=== PATIENT | male | born 1980 | race Caucasian/White ===

== ENCOUNTER 2024-02-20 11:22 | Emergency (ER) | payer SELFPAY ==
[2024-02-20 11:30] VITALS: BP 167/107; PULSE 116; TEMP 36.9; O2SAT 96; BMI 28.2
--- NOTE | 2024-02-20 11:41 | XR_ITS ---
The [address] [address] Patient Name: ZELDA SILVERIO MRN: [id number] date: 1980 Sex: M Assigned Patient Location: ER Current Patient Location: ER Accession/Order Number: [id number] Exam Date: 02/20/2024 11:58 Report Date: 02/20/2024 12:18 At the request of: MOHSEN ARIZMENDI Procedure: XR chest 2V EXAM: XR chest 2V HISTORY: cough COMPARISON: Chest radiograph dated 02/07/2024. TECHNIQUE: PA and lateral views of the chest performed. FINDINGS: The trachea is midline. The heart size is normal. The cardiomediastinal silhouette and hilar shadows are normal. There is no consolidation, pleural effusion or pulmonary vascular congestion. There is no pneumothorax. The osseous structures are unremarkable. XR/XR chest 2V IMPRESSION: There is no acute cardiopulmonary process. Electronically authenticated by: AASHISH ALLISON Date: 02/20/2024 12:18
--- NOTE | 2024-02-20 11:42 | ED.GENADUL1 ---
HPI HPI - General Adult General Chief complaint: Shortness of Breath/Dyspnea Stated complaint: COUGHING SOB Time Seen by Provider: 02/20/24 11:31 Source: patient Mode of arrival: walk-in History of Present Illness HPI narrative: Patient presents to ED complaining of cough. He was diagnosed with acute bronchitis and he has had 2 rounds of steroids and 2 rounds of antibiotics in the past month. He states there is still a lingering cough. He said the shortness of breath has improved. No fever no productive cough yet he states the cough is hacking and worse at night and causes him to almost vomit. He was concerned because he has a friend who from pneumonia and he did not know if this was developing into pneumonia. 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 No respiratory distress. He is anxious. No abdominal pain no fevers. Patient does have a history of vaping and smoking. Related Data Previous Rx's ?Medication ?Instructions ?Recorded hydrocodone-homatropine 5 mg-1.5 5 ml PO Q6H PRN cough #60 mL 02/20/24 mg/5 mL (5 mL) oral syrup (Hycodan) Allergies Allergy/AdvReac Type Severity Reaction Status Date / Time No Known Drug Allergies Allergy Verified 02/20/24 11:30 Opioid HPI Opioid Management Most Recent Opioid Data: No Data to Display Review of Systems ROS Status of ROS 10 or more systems reviewed and unremarkable except as noted in history and below PFSH PFSH Social History Little interest or pleasure in doing things: nearly every day Feeling down, depressed, or hopeless: nearly every day Exam Narrative Exam Narrative: General: alert, no acute distress Cardiovascular: regular rate and rhythm, normal peripheral perfusion. Respiratory: Lungs CTA, respirations non labored. Extremities: no deformity, no trauma. Neurological: oriented x 4, LOC appropriate for age. Mild tachycardia mild hypertension, anxiety Constitutional Vital Signs, click to edit/add: Last Vital Signs Temp 98.5 F 02/20/24 11:30 Pulse 116 H 02/20/24 11:30 Resp 18 02/20/24 11:30 BP 167/107 H 02/20/24 11:30 Pulse Ox 96 02/20/24 11:30 O2 Del Method Room Air 02/20/24 11:30 Course Vital Signs Vital signs: Vital Signs Temperature 98.5 F 02/20/24 11:30 Pulse Rate 116 H 02/20/24 11:30 Respiratory Rate 18 02/20/24 11:30 Blood Pressure 167/107 H 02/20/24 11:30 Pulse Oximetry 96 02/20/24 11:30 Oxygen Delivery Method Room Air 02/20/24 11:30 Temperature 98.5 F 02/20/24 11:30 Pulse Rate 116 H 02/20/24 11:30 Respiratory Rate 18 02/20/24 11:30 Blood Pressure 167/107 H 02/20/24 11:30 Pulse Oximetry 96 02/20/24 11:30 Oxygen Delivery Method Room Air 02/20/24 11:30 Medical Decision Making MDM Narrative Medical decision making narrative: Patient's chest x-ray is clear showing no pneumonia. He was recently on antibiotics as well as steroids. I do not think antibiotics are indicated at this time. I will give patient a cough syrup for cough suppression at home as he says it gets worse at night and causes posttussive emesis. Patient's vitals are stable he is alert and oriented no acute distress. Patient is comfortable care plan for home Differential Diagnosis Differential Diagnosis: Pneumonia, viral syndrome Imaging Data Chest x-ray: Radiologist's impression: ITS Impressions Chest X-Ray 02/20/24 11:41 IMPRESSION: There is no acute cardiopulmonary process. Electronically authenticated by: AASHISH ALLISON Date: 02/20/2024 12:18 Discharge Plan Discharge Chief Complaint: Shortness of Breath/Dyspnea Clinical Impression: Cough Patient Disposition: Home, Self-Care Time of Disposition Decision: 12:38 Condition: Good Mode of Transportation: Private Vehicle Prescriptions / Home Meds: New hydrocodone-homatropine [Hycodan] 5-1.5 mg/5 mL (5 mL) syrup 5 ml PO Q6H PRN (Reason: cough) Qty: 60 0RF Print Language: Greenlandic Instructions: Acute Cough (ED) Referrals: Physician,Non-Staff, MD [Primary Care Provider] - 1 week
== END 2024-02-20 12:56 | disposition home or self-care (01) ==
PROVIDERS: Emergency Provider Emergency Medicine
DX: R05.9 Cough, unspecified (principal); Z87.891 Personal history of nicotine dependence
CPT/HCPCS: 71046; 99283